=== PATIENT | male | born 1985 | race Caucasian/White ===

== ENCOUNTER 2019-05-29 13:24 | Inpatient (IN) ==
[2019-05-29 13:50] LABS: BASO# 0.02 X1000 (0.0-0.2); BASO% 0.1 % (0.0-0.8); EOS# 0.09 X1000 (0.0-0.7); EOS% 0.6 % (0.0-10.0); HEMATOCRIT 40.2 % (42.0-52.0); HEMOGLOBIN 13.4 g/dL (14.0-18.0); IMM GRAN# 0.04 X1000 (0.0-0.04); IMM GRAN% 0.3 % (0.0-0.5); LYMPH% 15.4 % (20.5-51.1); MCH 29.7 PG (27-31); MCHC 33.3 g/dL (33-37); MCV 89.1 FL (81-99); MONO# 1.32 X1000 (0.11-0.59); MONO% 8.5 % (1.7-9.3); MPV 9.3 FL (7.4-10.4); NEUT# 11.67 X1000 (1.4-6.5); NEUT% 75.1 % (42.2-75.2); PLT 349 X1000 (130-400); RBC 4.51 XMIL (4.7-6.1); RDW 12.9 % (11.5-14.5); WBC 15.54 X1000 (4.8-10.8)
[2019-05-29 14:01] LABS: AGAP 12; ALBUMIN 4.7 g/dL (3.5-5.0); ALKALINE PHOSPHATASE 63 U/L (32-122); BUN 7 mg/dL (8-22); CALCIUM 9.1 mg/dL (8.8-10.2); CHLORIDE 99 mmol/L (98-107); COSMO 274; CREATININE 0.9 mg/dL (0.7-1.2); ESTIMATED GFR > 60; GLUCOSE 111 mg/dL (70-104); GOT 17 U/L (10-34); GPT 14 U/L (10-44); LIPASE 18 U/L (13-60); POTASSIUM 3.9 mmol/L (3.5-5.1); SODIUM 138 mmol/L (136-145); TCO2 26 mmol/L (25-35); TOTAL PROTEIN 8.2 g/dL (6.3-8.3)
--- NOTE | 2019-05-29 15:26 | PROVIDER DOCUMENTATION ---
This chart was entered by Nicole Clifton Scribe, acting as scribe for Raven Chan CRNP. HPI-Abdominal Pain/GI Problem - General Chief Complaint: Abdominal Pain Stated Complaint: RIGHT SIDE PAIN Time Seen by Provider: 05/29/19 13:33 Source: patient Allergies/Adverse Reactions: Patient Allergies Allergy/AdvReac Type Severity Reaction Status Date / Time egg AdvReac Unknown NAUSEA/VOMI Verified 05/09/13 14:56 TING Home Medications: Home Medication List Medication Instructions Recorded Confirmed Last Taken Type Sulfamethoxazole/Trimethoprim 1 each PO BID #14 tablet 10/26/13 Unknown Rx [Bactrim Ds Tablet] Cyclobenzaprine [Flexeril] 10 mg PO TID #20 tablet 11/16/16 Unknown Rx Ibuprofen [Motrin] 800 mg PO Q8H PRN PRN #20 tablet 11/16/16 Unknown Rx Omeprazole 20 mg PO DAILY #20 tablet. 11/16/16 Unknown Rx Hydrocodone/APAP 10 mg/325 mg 1 ea PO Q4H PRN PRN #14 tab 05/30/19 Unknown Rx [[place]-10] - History of Present Illness-ABD Nature of Presenting Problems: Patient is a 34 year old male who presents with RLQ abdominal pain. States pain has been present for 2 days. Denies fever, nausea, vomiting and diarrhea. Abdominal Pain Onset Location: reports: RLQ Pain Radiation: reports: no radiation Quality of Pain: reports: aching Severity in ED: reports: mild Onset/Duration: reports: 2 days ago Timing: reports: still present, getting worse Activities at Onset: reports: light activity Associated Symptoms: denies: diarrhea, fever/chills, nausea, vomiting Bruising or Bleeding Gums?: No Similar Symptoms Previously?: Yes Recently seen or treated by another doctor?: No Review of Systems - Adult - REVIEW OF SYSTEMS - ADULT Constitutional: reports: no symptoms reported. denies: chills, fever Eyes: reports: no symptoms reported Ears, Nose, Mouth & Throat: reports: no symptoms reported Cardiovascular: reports: no symptoms reported Respiratory: reports: no symptoms reported Gastrointestinal: reports: see HPI, abdominal pain (RLQ). denies: diarrhea, nausea, vomiting Genitourinary: reports: no symptoms reported Musculoskeletal: reports: no symptoms reported Integumentary: reports: no symptoms reported Neurological: reports: no symptoms reported Psychiatric: reports: no symptoms reported Endocrine: reports: no symptoms reported Hematologic/Lymphatic: reports: no symptoms reported Allergic/Immunologic: reports: no symptoms reported All Other Systems: Reviewed and Negative Past History - Adult - PAST MEDICAL HISTORY-ADULT Review of Records: reports: Old Records Reviewed, Nursing Assessment Review, Medications Reviewed, Social history reviewed & non-contributory. Major Childhood Illnesses: reports: denies history Cardiovascular: reports: denies history Respiratory: reports: denies history Gastrointestinal: reports: denies history Obstetrical/Gynecological: reports: denies history Genitourinary: reports: denies history Musculoskeletal: reports: denies history Neurological: reports: denies history Psychiatric: reports: anxiety Endocrine/Immune: reports: denies history Other Conditions: reports: denies history - PRIOR SURGERIES/PROCEDURES Surgical/Procedure History: reports: reviewed, not pertinent - IMMUNIZATION STATUS Childhood Immunizations: See Nurse Assessment Flu Vaccine: See Nurse Assessment - FAMILY HISTORY Family History: reviewed, not pertinent - SOCIAL HISTORY Smoking: denies Substance Use: alcohol Alcohol Use Frequency: occasionally Physical Exam-General - PHYSICAL EXAM-ADULT Initial Vital Signs Reviewed: Yes - CONSTITUTIONAL General Appearance: alert, mild distress. negative: lethargic - HEAD, EARS, NOSE, MOUTH & THROAT HENMT: normocephalic/atraumatic, moist mucous membranes. negative: angioedema - RESPIRATORY Respiratory: chest non-tender, lungs clear, normal breath sounds. negative: wheezing - CARDIOVASCULAR Cardiovascular: regular rate, rhythm. negative: tachycardia, systolic murmur - GASTROINTESTINAL (ABDOMEN) Abdominal Exam: normal bowel sounds, soft, rebound, tenderness (RLQ), McBurney's point tenderness. negative: distended - MUSCULOSKELETAL Extremity: normal gait, normal inspection. negative: deformity - SKIN Integumentary: normal color, normal turgor, warm/dry. negative: diaphoresis - NEUROLOGIC Neurologic: grossly normal. negative: aphasia, facial droop - PSYCHIATRIC Psych/Mental Status: normal thought content, normal thought process, oriented x 3. negative: tearful Progress - PLAN OF CARE/RESULTS Progress/Plan/Lab Results: Vital Signs - 8 hr 05/29/19 13:30 Temperature 98.0 F Pulse Rate 73 Respiratory Rate 18 Blood Pressure 139/87 O2 Sat by Pulse Oximetry 98 Laboratory Results - last 24 hr 05/29/19 05/29/19 05/29/19 13:37 13:37 13:37 WBC 15.54 H RBC 4.51 L Hgb 13.4 L Hct 40.2 L MCV 89.1 MCH 29.7 MCHC 33.3 RDW Std Deviation 12.9 Plt Count 349 MPV 9.3 Immature Gran % (Auto) 0.3 Neut % (Auto) 75.1 Lymph % (Auto) 15.4 L [place] % (Auto) 8.5 Eos % (Auto) 0.6 Baso % (Auto) 0.1 Immature Gran # (Auto) 0.04 Neut # (Auto) 11.67 H Lymph # (Auto) 2.40 [place] # (Auto) 1.32 H Eos # (Auto) 0.09 Baso # (Auto) 0.02 Sodium 138 Potassium 3.9 Chloride 99 Carbon Dioxide 26 Anion Gap 12 BUN 7 L Creatinine 0.9 Estimated GFR/1.73 m2 > 60 BUN/Creatinine Ratio 8 Glucose 111 H Calculated Osmolality 274 Calcium 9.1 Total Bilirubin 0.60 AST 17 ALT 14 Alkaline Phosphatase 63 Total Protein 8.2 Albumin 4.7 Globulin 4.0 Albumin/Globulin Ratio 1.0 Amylase 53 Lipase 18 Orders Category Date Time Status Saline Loc NOW Care 05/29/19 14:[address] ABD/PELVIS W/IV CONT ONLY [CT] Stat Exams 05/29/19 14:03 Ordered AMYLASE [CHEM] Stat Lab 05/29/19 13:37 Completed CBC WITH DIFF [HEME] Stat Lab 05/29/19 13:37 Completed COMPREHENSIVE METABOLIC PANEL [CHEM] Stat Lab 05/29/19 13:37 Completed LIPASE [CHEM] Stat Lab 05/29/19 13:37 Completed UA [URINALYSIS W/POSS RFLX CULT] [URINALYSIS] Stat Lab 05/29/19 13:33 Uncollected 1523: PT UPDATE IN LOBBY ON NEED FOR CT EXAM AND LABS CONCERNING FOR ACUTE APPENDICITIS. PT IN AGREEMENT Result Diagrams: 05/29/19 13:37 05/29/19 13:37 - CT/MRI 1 CT Study: Abdomen, Pelvis Impression: See EMR Report (EXAM: CT ABD/PELVIS W/IV CONT ONLY - 05/29/2019 HISTORY: abd pain, RLQ, ELEVATED WBC TECHNIQUE: CT abdomen/pelvis with intravenous contrast COMPARISON: None. FINDINGS: The visualized lung bases are clear except for mild subsegmental atelectasis. There are no substantial abnormalities of the liver, spleen, adrenal glands, or pancreas identified. There are no calcified gallstones or pericholecystic inflammation seen. The bilateral kidneys enhance homogeneously. There is no hydronephrosis. The urinary bladder rojas appear mildly thickened diffusely. The appendix is enlarged, with diameter up to 1.8 cm. There are periappendiceal inflammatory changes. These findings are consistent with acute appendicitis. There is a faintly calcified appendicolith versus enhancement in the appendix. There is no abscess identified. There is no free air. There is a small amount of free fluid in the pelvis. There is no evidence of bowel obstruction. There are some borderline mesenteric lymph nodes at the right lower quadrant. IMPRESSION: Acute appendicitis. This exam was performed using automated exposure control, adjustment of mA or kV according to patient size, and/or use of iterative reconstruction technique. Electronically signed by Marck Jones 05/29/2019 5:04 PM 05/29/19 1704 Interpreting Physician: Marck Jones MD Dictated Date/Time: 05/29/19 2841 cc: Raven Chan; None,PCP) - CONSULTS/PCP/HOSPITALIST Notification #1 *Consult/PCP/Hospitalist*: DR. CHAN Time Discussed: 17:10 Consult Disposition: Admit Departure - Departure Date of Disposition Decision: 05/29/19 Time of Disposition Decision: 17:09 DIAGNOSIS: Acute appendicitis Disposition: ADMITTED INPATIENT 09 Certified Medical Emergency: Emergent Condition: Stable - Critical Care Note This patient required my direct & personal management of CC.: No Attestation - Physician/ RUTHANN Attestation Patient care was provided by Advanced Practice Provider:: Yes Advanced Practice Provider:: Raven Chan Advanced Practice Provider documentation review:: The Mid-level provider documentation, treatment plan and medical decision making was reviewed by the physician who agrees with all treatment and medical decision making by the MLP. The physician spent face to face time with patient:: No Advanced Practice Provider documentation review:: Supervising physician onsite and consulted in the evaluation and care of this patient. The physician did not have a face to face encounter with the patient. This chart was documented by the indicated scribe, (Nicole Clifton Scribe) and accurately reflects the services I performed and decisions made by , Raven Chan CRNP, as attested by the provider's signature.
[2019-05-29] MEDS ORDERED: ZOFRAN IV ONE (15:58)
[2019-05-29] MEDS ORDERED: MORPHINE IV ONE (15:58)
[2019-05-29 16:07] LABS: URINE SOURCE CLEAN CATCH
[2019-05-29 16:17] LABS: BILIRUBIN URINE NEGATIVE (NEGATIVE); BLOOD URINE NEGATIVE (NEGATIVE); COLOR YELLOW; GLUCOSE URINE NEGATIVE (NEGATIVE); KETONE URINE NEGATIVE (NEGATIVE); LEUKOCYTES URINE NEGATIVE (NEGATIVE); NITRITE URINE NEGATIVE (NEGATIVE); PROTEIN URINE NEGATIVE (NEGATIVE); SP GRAVITY URINE 1.011; TURBIDITY URINE CLEAR (CLEAR); UROBILINOGEN URINE NORMAL (NORMAL)
[2019-05-29 16:18] LABS: UR EPITHELIAL CELLS <10 /HPF (<10); URINE BACTERIA NEGATIVE /HPF; URINE RBC <10 /HPF (<10); URINE WBC <10 /HPF (<10)
--- NOTE | 2019-05-29 17:06 | Diag Imaging Result Doc PS360 ---
EXAM: CT ABD/PELVIS W/IV CONT ONLY - 05/29/2019 HISTORY: abd pain, RLQ, ELEVATED WBC TECHNIQUE: CT abdomen/pelvis with intravenous contrast COMPARISON: None. FINDINGS: The visualized lung bases are clear except for mild subsegmental atelectasis. There are no substantial abnormalities of the liver, spleen, adrenal glands, or pancreas identified. There are no calcified gallstones or pericholecystic inflammation seen. The bilateral kidneys enhance homogeneously. There is no hydronephrosis. The urinary bladder rojas appear mildly thickened diffusely. The appendix is enlarged, with diameter up to 1.8 cm. There are periappendiceal inflammatory changes. These findings are consistent with acute appendicitis. There is a faintly calcified appendicolith versus enhancement in the appendix. There is no abscess identified. There is no free air. There is a small amount of free fluid in the pelvis. There is no evidence of bowel obstruction. There are some borderline mesenteric lymph nodes at the right lower quadrant. IMPRESSION: Acute appendicitis. This exam was performed using automated exposure control, adjustment of mA or kV according to patient size, and/or use of iterative reconstruction technique. Electronically signed by Marck Jones 05/29/2019 5:04 PM
[2019-05-29] MEDS ORDERED: ZOSYN 3.375 GM in NS 50 ML IV ONE (17:10)
[2019-05-29] MEDS ORDERED: HURRICAINE SPRAY (DOSE) ONE (18:04)
[2019-05-29] MEDS ORDERED: QUELICIN (DOSE) ONE (18:16)
[2019-05-29] MEDS ORDERED: ROBINUL ONE ×2 (18:16→19:20)
[2019-05-29] MEDS ORDERED: NEOSTIGMINE ONE (18:16)
[2019-05-29] MEDS ORDERED: XYLOCAINE-MPF 2% ONE ×2 (18:16→19:40)
[2019-05-29] MEDS ORDERED: ZEMURON ONE (18:16)
[2019-05-29] MEDS ORDERED: DIPRIVAN 1% ONE (18:18)
[2019-05-29] MEDS ORDERED: SENSORCAINE-MPF 0.5%/EPI 1:200,000 ONE (18:32)
[2019-05-29] MEDS ORDERED: LR 1,000 ML ONE (18:32)
[2019-05-29] MEDS ORDERED: VERSED ONE (18:54)
[2019-05-29] MEDS ORDERED: DECADRON ONE (19:08)
[2019-05-29] MEDS ORDERED: ZOFRAN ONE (19:08)
[2019-05-29] MEDS ORDERED: NS 1,000 ML ONE (20:15)
[2019-05-29] MEDS: NORCO-10 ONE ×2 (20:19→21:52)
[2019-05-29] MEDS ORDERED: NORCO-10 PO PRN (20:42)
[2019-05-29] MEDS: NS 1,000 ML IV SCH (21:53)
--- NOTE | 2019-05-29 22:13 | OPERATIVE NOTE ---
PROCEDURE DATE: 05/29/2019 PROCEDURE PERFORMED: Laparoscopic appendectomy. SURGEON: Gian Faust MD AIRPORT ENGINEER: CODY Lemons PREOPERATIVE DIAGNOSIS: Acute appendicitis. POSTOPERATIVE DIAGNOSIS: Acute appendicitis. DESCRIPTION OF PROCEDURE: After satisfactory general endotracheal anesthesia, the abdomen was prepped and draped in a sterile fashion. We anesthetized the skin above the umbilicus, made a vertical incision and introduced an 11 trocar Optiview technique into the abdominal cavity. We insufflated through this trocar. Under direct visualization, we introduced a 12 trocar in the lower hypogastrium and a 5 trocar just below the umbilicus. We placed the patient in Trendelenburg and turned him to the left. The inflamed appendix was identified. We grasped the mesoappendix, and then began using the LigaSure at the base of the appendix. We cauterized through the mesoappendix all the way down to the appendiceal base. We introduced the Endo DUSTY huber cartridge 30 mm long, stapled and divided the base the appendix. We placed the appendix within the Pleatman pouch and delivered it out of the abdominal cavity. We looked back, and we had some bleeding from the mesentery. We attempted cautery, and finally achieved acceptable hemostasis. We did add some Dee powder into that area to help secure the hemostasis. We aspirated what fluid had collected. No other abnormalities were identified. We then used a Jalen-Ashleigh wound closure for the lower hypogastric trocar site and the supraumbilical trocar site. We desufflated and removed our trocars. We closed the fascia with those 2 stitches and then added an additional 2-0 Polysorb stitch at the lower hypogastric trocar site. We then closed the skin at each incision with 4-0 Polysorb subcuticular stitches. Sterile OpSite were applied. He tolerated it well. He was sent to the recovery room in satisfactory condition. cc: Gian Faust MD
[2019-05-29] MEDS: ZOSYN 3.375 GM in NS 50 ML IV SCH (23:55)
[2019-05-29] MEDS: MORPHINE IV PRN (23:55)
[2019-05-30] MEDS: MORPHINE IV PRN ×2 (04:02→09:42)
[2019-05-30] MEDS: ZOSYN 3.375 GM in NS 50 ML IV SCH ×2 (05:50→09:44)
[2019-05-30 07:38] VITALS: BP 117/58
[2019-05-30] MEDS: NS 1,000 ML IV SCH (08:04)
--- NOTE | 2019-05-30 09:27 | GENERAL SURGERY PROGRESS NOTE ---
DATE: 05/30/2019 SUBJECTIVE: Mr. Neil is doing generally well. OBJECTIVE: He is afebrile, heart rate 60, blood pressure 117/58. He has taken liquids satisfactorily. He has urinated satisfactorily. PLAN: The plan is to discharge him today. He is to stick with liquids today and eat regular food tomorrow. We discussed wound care, activity, and diet. He will return to see me in the office in 9 days. cc: Gian Faust MD
== END 2019-05-30 11:03 | disposition home or self-care (01) | DRG 342 ==
LOC: P.ED 13:24 → 4N 13:25
PROVIDERS: ADMIT Surgery; ATTEND Surgery